=== PATIENT | male | born 1960 | race American Indian/Alaskan Native ===

== ENCOUNTER 2018-10-31 10:39 | Day surgery (SDC) | payer OTHER ==
[~2018-10-31 10:39] MED LIST: NACL 0.9% 1000 ML 1,000 ML IV SCH
--- NOTE | 2018-10-31 11:46 | Anesthesia Consultation ---
Anesthesia Consult and Med Hx Date of service: 10/31/18 - Airway Anesthetic Teeth Evaluation: Good ROM Head & Neck: Adequate Mental/Hyoid Distance: Adequate Mallampati Class: Class III Intubation Access Assessment: Probably Good - Pulmonary Exam CTA: Yes - Cardiac Exam Cardiac Exam: RRR - Pre-Operative Health Status ASA Pre-Surgery Classification: ASA2, ASA3 Proposed Anesthetic Plan: MAC - Pulmonary Hx Smoking: No Hx Respiratory Symptoms: No Home Oxygen Therapy: No Hx Sleep Apnea: Yes (No CPAP) - Cardiovascular System Hx Hypertension: No Hx Angina: No Hx Cardia Arrhythmia: No Hx Peripheral Vascular Disease: No - Central Nervous System Hx Neuromuscular Disorder: No CVA: No Hx Psychiatric Problems: No - Gastrointestinal Hx Ulcer: No Hx Gastroesophageal Reflux Disease: No - Endocrine Hx Renal Disease: No Hx Cirrhosis: No Hx Liver Disease: No Hx Insulin Dependent Diabetes: No Hx Non-Insulin Dependent Diabetes: No Hx Thyroid Disease: No - Hematic Hx Anemia: No Hx Sickle Cell Disease: No - Other Systems Hx Alcohol Use: No Hx Obesity: Yes - Additional Comments Anesthesia Medical History Comments: No GAC, No FHAC
--- NOTE | 2018-10-31 11:47 | Anesthesia Day of Surgery ---
Anesthesia Day of Surgery - Day of Surgery Patient Examined: Yes Patient H&P Reviewed: Yes Patient is NPO: Yes Beta Blockers: No Cardiac Clearance: No Pulmonary Clearance: No
[2018-10-31] MEDS ORDERED: DIPRIVAN 10 MG/ML IV ONE ×2 (13:49)
[2018-10-31] MEDS ORDERED: WATER FOR IRRIG STERILE IR ONE (13:54)
[2018-10-31] MEDS ORDERED: WATER FOR IRRIG STERILE ONE ×2 (13:55→14:10)
[2018-10-31] MEDS ORDERED: VERSED ONE (14:09)
--- NOTE | 2018-10-31 14:21 | Operative Report ---
Operative Report Operative Report: Date of procedure: 10/31/2018 Procedure: Colonoscopy with hot biopsy polypectomy. Attending physician: Jasbir Tavarez MD Paper Coating Machine Operator: Jasbir Tavarez MD Indication: Patient is a 58 year-old male who presents for screening colonoscopy. Patient has a past history of colon polyps. A colonoscopy serves to evaluate patient so that treatment may be directed based on findings. Consent: Informed consent was obtained after advising the patient and family regarding nature of this procedure, its indications, potential benefits as well as possible complications including but not limited to bleeding perforation and adverse reaction to medication, infection as well as other cardiopulmonary complications. An informed written and verbal consent was then obtained after due opportunity was provided for questions and answers. Monitoring: Patient was monitored continuously with pulse oximetry and electrocardiographic recordings as well as blood pressure recordings. Vital signs remained stable throughout this procedure with no untoward events. Preoperative assessment: Patient was assessed immediately prior to this procedure for capacity to tolerate monitored anesthesia care and moderate sedation as well as general anesthesia. Patient's ASA classification is 1, Mallampati class is 2, Hyomental distance is 3. Instrument: Pyrolian videocolonoscope. Pyrolian video endoscope. Medications: Propofol given intravenously in divided doses. For details please refer to anesthesia records. Description of procedure: Patient was placed in the left lateral decubitus position after achieving sedation, a digital rectal examination was performed following which the colonoscope was introduced into the anal verge and advanced to the cecum which was identified by the cecal valve, the appendiceal orifice, as well as by the cecal strap and direct transillumination. The colonoscope was subsequently withdrawn with careful inspection of all mucosal surfaces. Patient tolerated this procedure well and was subsequently taken to the recovery room. The following findings were noted. Findings: The preparation was suboptimal. There was densely adherent liquid stool in the cecum and ascending colon descending colon and also sigmoid colon. There however were no gross abnormalities seen however the presence of stool may make it difficult to visualize flat lesions. Patient had a diminutive polyp in the sigmoid colon which was removed by hot biopsy polypectomy. On the retroflexed view of the anal verge, patient had prominent internal hemorrhoids.. Impression: Retained stool. Poor colonoscopic preparation Sigmoid colon polyp status post hot biopsy polypectomy. Internal hemorrhoids. Plan: Look pathology report High-fiber diet. Consider repeat colonoscopy earlier than 5 years
--- NOTE | 2018-10-31 14:25 | Discharge Summary ---
Short Stay Discharge Plan Activity: advance as tolerated Weight Bearing Status: Weight Bear as Tolerated Diet: regular Follow up with: [facility] [Primary Care Provider] - 7 Days
[2018-10-31 14:51] VITALS: BP 162/89
== END 2018-10-31 10:40 | disposition home or self-care (01) ==
LOC: GIO 10:39
PROVIDERS: ATTEND Internal Medicine Gastroenterology
DX: Z12.11 Encounter for screening for malignant neoplasm of colon (principal); K63.5 Polyp of colon; K64.8 Other hemorrhoids; G47.33 Obstructive sleep apnea (adult) (pediatric); F41.9 Anxiety disorder, unspecified; G47.30 Sleep apnea, unspecified; E66.9 Obesity, unspecified; Z68.37 Body mass index [BMI] 37.0-37.9, adult
CPT/HCPCS: 45384; 88305; J2250; J2704; J7030